=== PATIENT | female | born 1980 | race Caucasian/White ===

== ENCOUNTER 2019-03-29 18:18 | Emergency (ER) | payer BC ==
--- NOTE | 2019-03-29 19:51 | ED ---
HPI Chest Pain - HPI Summary HPI Summary: Pt is a 38 y/o F presenting to the ED with a chief complaint of chest pain initially onset on 03/26/19. On that same date, she experienced increased diaphoresis and palpitations. Over the next few days, she states she has experienced fatigue, dyspnea, dizziness/lightheadedness, nausea, and numbness/ tingling in her L arm for a couple of hours. The chest pain as of today is stabbing, has not resolved, and is worse with deep breaths. She c/o some abd cramping as well. No paresthesias today. She denies vomiting. Family history of a heart attack in father age 40. Distant history of blood clots in her grandmother. - History of Current Complaint Chief Complaint: EDChestPainROMI Time Seen by Provider: 03/29/19 19:21 Hx Obtained From: Patient Hx Last Menstrual Period: 2 weeks ago Onset/Duration: Started Days Ago, Still Present Timing: Constant, Lasting Days Initial Severity: Moderate Current Severity: Moderate Pain Intensity: 5 Pain Scale Used: 0-10 Numeric Chest Pain Location: Left Anterior Chest Pain Radiates: No Character: Dull/Aching Aggravating Factor(s): Deep Breaths Alleviating Factor(s): Rest Associated Signs and Symptoms: Positive: Chest Pain, Numbness, Tingling, Dizziness, Shortness of Breath, Diaphoresis, Nausea, Palpitations, Abdominal Pain. Negative: Vomiting - Allergy/Home Medications Allergies/Adverse Reactions: Allergies Allergy/AdvReac Type Severity Reaction Status Date / Time No Known Allergies Allergy Verified 10/03/18 10:36 Home Medications: Home Medications NK [No Home Medications Reported] 03/29/19 [History Confirmed 03/29/19] PMH/Surg Hx/FS Hx/Imm Hx Previously Healthy: Yes Endocrine/Hematology History: Denies: Hx Diabetes, Hx Thyroid Disease Cardiovascular History: Denies: Hx Hypertension, Hx Pacemaker/ICD Respiratory History: Denies: Hx Asthma, Hx Chronic Obstructive Pulmonary Disease (COPD) GI History: Denies: Hx Ulcer History: Denies: Hx Renal Disease Sensory History: Denies: Hx Hearing Aid Psychiatric History: Denies: Hx Panic Disorder Infectious Disease History: No Infectious Disease History: Denies: Hx Hepatitis, Hx Human Immunodeficiency Virus (HIV), Traveled Outside the [place] in Last 30 Days - Family History Known Family History: Positive: Cardiac Disease - father [place] at age 40, Blood Disorder - blood clots in mother and maternal grandmother - Social History Alcohol Use: Rare Hx Substance Use: No Substance Use Type: Reports: None Hx Tobacco Use: No Smoking Status (MU): Never Smoked Tobacco Review of Systems Positive: Fatigue, Skin Diaphoresis Positive: Palpitations, Chest Pain Positive: Shortness Of Breath Positive: Abdominal Pain, Nausea. Negative: Vomiting Neurological: Other - dizziness Positive: Paresthesia, Numbness All Other Systems Reviewed And Are Negative: Yes Physical Exam - Summary Physical Exam Summary: Constitutional: Well-developed, Well-nourished, Alert. (-) Distressed Skin: Warm, Dry HENT: Normocephalic; Atraumatic Eyes: Conjunctiva normal Neck: Musculoskeletal ROM normal neck. (-) JVD, (-) Stridor, (-) Nuchal rigidity Cardio: Rhythm regular, rate normal, Heart sounds normal; Intact distal pulses; Radial pulses are 2+ and symmetric. (-) Murmur Pulmonary/Chest wall: Effort normal. (-) Respiratory distress, (-) Wheezes, (-) Rales Abd: Soft, (-) tenderness, (-) Distension, (-) Guarding, (-) Rebound Musculoskeletal: (-) Edema Lymph: (-) Cervical adenopathy Neuro: Alert, Oriented x3 Psych: Mood and affect Normal Triage Information Reviewed: Yes Vital Signs On Initial Exam: Initial Vitals Temp Pulse Resp BP Pulse Ox 97.4 F 71 16 145/79 98 03/29/19 18:30 03/29/19 18:30 03/29/19 18:30 03/29/19 18:30 03/29/19 18:30 Vital Signs Reviewed: Yes Procedures - Sedation Patient Received Moderate/Deep Sedation with Procedure: No Diagnostics - Vital Signs Vital Signs Temp Pulse Resp BP Pulse Ox 03/29/19 18:30 97.4 F 71 16 145/79 98 - Laboratory Result Diagrams: 03/29/19 19:56 03/29/19 19:56 Lab Statement: Any lab studies that have been ordered have been reviewed, and results considered in the medical decision making process. - Radiology CXR Radiology Interpretation Completed By: ED Physician Summary of Radiographic Findings: No acute process. Pending official radiology report. - EKG 1817 Cardiac Rate: NL - 64bpm EKG Rhythm: Sinus Rhythm ST Segment: Normal Ectopy: None Summary of EKG Findings: EKG at 1817 shows NSR at 64bpm with T-wave inversions in v1, nml axis, nml intervals. No STEMI. No acute changes. ED physician has reviewed and interpreted this report. Chest Pain Course/Dx - Course Course Of Treatment: 38-year-old female with no past medical history presents with chest pain, palpitations. Chest Pain DDX: The patient is well appearing, with stable vitals. Given the patient's clinical presentation, highest on differential is atypical chest pain. Although less likely, differential also includes the following: --Pneumothorax: Equal breath sounds, story inconsistent since gradual onset of symptoms. CXR shows no evidence of pneumothorax. Unlikely. --Cardiac tamponade: The history and physical are not concerning for tamponade. No Pulsus Paradoxus, no tachypnea. Unlikely. -- Mediastinitis or esophageal rupture: The history is not consistent, as the patient has had no recent history of significant wretching, instrumentation, or mediastinal surgeries. Unlikely. --Aortic dissection: The patient does not describe the classical tearing chest pain radiating into the back, and the CXR does not show mediastinal widening or other signs of aortic dissection. Unlikely. --PE: Vitals wnl (not hypoxic, tachycardic or tachypneic). PERC negative. --ACS: The initial EKG shows no ischemic changes. The initial troponin is not elevated. Discussed with patient that she does have risk factors given her family history of heart disease, and she states that she will follow-up with her primary care doctor to possibly schedule stress test. Heart score - HEART Score. Based on a HEART score of 1 the patient has a low risk (<2 % chance) of major adverse cardiac event within the next 6 weeks. I explained to the patient that based on the work-up today, her risk of heart attack is low and that he/she will be discharged with outpatient follow-up. Strict return precautions were discussed regarding worsening chest pain, new / atypical pain, shortness of breath, or any other serious concerns. Patient endorsed understanding and has no questions at this time. Source --. Reading BE, Mic AJ , Marilou CESILAI, Jose A MA, Mast EG, Alena A, Janel RF,. Arminda OLSEN, Yuan R , Dora R, Mckayla SH, van Carline R, Luis TP, van den Ledy F,. Rocky MJ, Soha JM, Namrata AW, Cesar PA. A prospective validation of. the HEART score for chest pain patients at the emergency department. Int J. Cardiol. 2013 Mar 3;168(3):2153-8. 0-3: 2.5% risk of adverse cardiac event. In the HEART Score, these patients were discharged. (0.99% retrospective) (1.7% prospective). 4-6: 20.3% risk of adverse cardiac event, suggesting admission to the hospital. 11.6% (16.6% prospective). =7: 72.7% risk of adverse cardiac event, suggesting early invasive measures with these patients. 65.2% (50.1% prospective) - Diagnoses Provider Diagnoses: Pleurisy Discharge ED - Sign-Out/Discharge Documenting (check all that apply): Patient Departure - Discharge Plan Condition: Stable Disposition: HOME Patient Education Materials: Pleurisy (ED) Referrals: Barbara Teixeira MD [Primary Care Provider] - Additional Instructions: You were seen in the emergency department for chest pain. Your EKG (heart tracing), labs and chest x-ray did not show any cause for pain. Important that you follow up with you primary care doctor in the next 1-2 days to help schedule an outpatient stress test. Please return to the emergency department for continued chest pain, trouble breathing, passing out, or if you're concerned. - Billing Disposition and Condition Condition: STABLE Disposition: Home - Attestation Statements Document Initiated by Cornelio: Yes Documenting Scribe: Floridalma Casper Provider For Whom Cornelio is Documenting (Include Credential): Tomas Bautista MD. Scribe Attestation: Floridalma Perez, scribed for Tomas Bautista MD. on 03/29/19 at 2100. Scribe Documentation Reviewed: Yes Provider Attestation: The documentation as recorded by the ghazalaibe, Floridalma Casper accurately reflects the service I personally performed and the decisions made by me, Tomas Bautista MD. Status of Scribe Document: Viewed
[2019-03-29 20:03] LABS: ABS Basophils 0.1 10^3/ul (0-0.2); ABS Eosinophils 0.2 10^3/ul (0-0.6); ABS Monocytes 0.6 10^3/ul (0-0.8); Eosinophil % 2.2 %; Hematocrit 41 % (35-47); Hemoglobin 13.9 g/dL (12.0-16.0); Lymphocyte % 29.4 %; Mean Corpuscular HGB Conc 34 g/dL (31-36); Mean Corpuscular Hemoglobin 30 pg (27-31); Mean Corpuscular Volume 88 fL (80-97); Mean Platelet Volume 9.1 fL (7.4-10.4); Nucleated Red Blood Cells % 0.1; Platelet Count 251 10^3/uL (150-450); Red Blood Count 4.61 10^6 /uL (3.70-4.87); Red Cell Distribution Width 13 % (10-15); White Blood Count 6.7 10^3/uL (3.5-10.8)
[2019-03-29 20:19] LABS: Albumin 3.9 g/dL (3.2-5.2); Albumin/Globulin Ratio 1.6 (1-3); BUN/Creatinine Ratio 12.9 (8-20); Calcium 8.6 mg/dL (8.6-10.3); EGFR African American 91.1 (>60); EGFR Non-African American 75.3 (>60); Globulin 2.5 g/dL (2-4); Total Bilirubin 0.3 mg/dL (0.2-1.0); Total Protein 6.4 g/dL (6.4-8.9)
[2019-03-29 21:23] VITALS: BP 120/73
== END 2019-03-29 21:18 | disposition home or self-care (01) ==
LOC: ED 18:18
DX: R09.1 Pleurisy (principal)
CPT/HCPCS: 36415; 71046; 80053; 84484; 85025; 93005; 99283